=== PATIENT | male | born 1990 | race Caucasian/White ===

== ENCOUNTER 2018-01-16 19:55 | Inpatient (IN) | payer OTHER ==
[2018-01-16] VITALS (7 sets, daily range): BP systolic 146–172; BP diastolic 91–121
[~2018-01-16] VITALS: Ht 182.9 cm; Wt 94.8 kg
[~2018-01-16 19:55] MED LIST: LISINOPRIL20 MG PO
[2018-01-16] MEDS ORDERED: CELEXA40 MG PO (20:09)
[2018-01-16] MEDS ORDERED: EFFEXOR XR75 MG PO (20:10)
[2018-01-16 20:33] LABS: ABSOLUTE MONOCYTES 0.6 thou/uL (0.0-1.2); ABSOLUTE NEUTROPHILS 3.5 thou/uL (1.6-8.1); MONOCYTES 12.2 %; NUCLEATED RBCS 0 /100WBC; WBC 5.2 thou/uL (4.0-11.0)
[2018-01-16 20:36] LABS: ABSOLUTE EOSINOPHILS 0.2 thou/uL (0.0-0.7); ABSOLUTE LYMPHOCYTES 0.8 thou/uL (0.8-5.3); BASOPHILS 0.5 %; EOSINOPHILS 2.9 %; HEMATOCRIT 48.1 % (42.0-52.0); HEMOGLOBIN 17.1 gm/dL (14.0-18.0); LYMPHOCYTES 16.3 %; MCH 33.8 pg (26.0-34.0); MCHC 35.5 g/dL (28.0-37.0); MCV 95.2 fL (80.0-100.0); MPV 9.6 fl. (7.2-11.1); PLATELET COUNT* 145 thou/uL (150-400); POLYS 68.1 %; RBC 5.05 mil/uL (4.50-6.00); RDW-CV 15.5 % (10.5-14.5)
[2018-01-16 20:42] LABS: CREATININE 0.9 mg/dL (0.6-1.3); POTASSIUM 3.8 mmol/L (3.5-5.1)
[2018-01-16 21:00] LABS: ALBUMIN 4.4 g/dL (3.4-5.0); MAGNESIUM 1.9 mg/dL (1.8-2.4); TOTAL BILIRUBIN 1.1 mg/dL (<0.1-1.0); TOTAL PROTEIN 8.3 g/dL (6.4-8.2)
[2018-01-16 21:07] LABS: LARGE PLATELETS RARE; PLATELET ESTIMATE ADEQUATE
[2018-01-16 22:46] LABS: URINE BILIRUBIN NEGATIVE (Negative); URINE BLOOD TRACE (Negative); URINE CLARITY CLEAR; URINE COLOR YELLOW; URINE GLUCOSE-RANDOM NEGATIVE (Negative); URINE KETONES 2+ (Negative); URINE LEUKOCYTES-REFLEX NEGATIVE (Negative); URINE NITRITE-REFLEX NEGATIVE (Negative); URINE PROTEIN NEGATIVE (Negative); URINE UROBILINOGEN 0.2 E.U./dl (0.2-1.0)
[2018-01-17] VITALS (16 sets, daily range): BP systolic 128–193; BP diastolic 84–110
[2018-01-17 00:27] LABS: AMP/METHAMP Negative (Negative); BARBITURATES Negative (Negative); BENZODIAZEPINES Negative (Negative); COCAINE Negative (Negative); METHADONE Negative (Negative); OPIATES Negative (Negative); PCP Negative (Negative); THC Negative (Negative)
--- NOTE | 2018-01-17 01:14 | NUR ---
ADMITTED TO ICU BED 5, SEE ASSESSMENT. PT REPORTED HE ATTENDED INPT REHAB AT [facility] IN [place]ULY AND MAINTAINED 3 MONTHS SOBRIETY AFTER DC, RELAPSING IN OCTOBER AND DRINKING A FIFTH OF VODKA DAILY SINCE. PT TOOK HIS LAST DRINK Wednesday01/14/18 IN ATTEMPT TO QUIT AT HOME. STATES HE WAS TALKING TO HER THIS EVENING WHEN HE FELL AND BEGAN SEIZING. PT HAS PREVIOUS HISTORY OF SEIZURES WITH DETOX. BP SIGNIFICANTLY ELEVATED, PRN ATIVAN GIVEN ORDERED WITH DECREASE IN BP NOTED. PT ORIENTED TO ROOM/CALL LIGHT. EDUCATED ON FALL PRECAUTIONS AND IMPORTANCE OF CALLING FOR ASSISTANCE TO GET OUT OF BED, VERBALIZED UNDERSTANDING. CALL LIGHT WITHIN REACH.
[2018-01-17 04:35] LABS: HEMATOCRIT 43.4 % (42.0-52.0); MCH 33.2 pg (26.0-34.0); MCHC 34.4 g/dL (28.0-37.0); MCV 96.5 fL (80.0-100.0); MPV 10.1 fl. (7.2-11.1); RBC 4.5 mil/uL (4.50-6.00); RDW-CV 15.4 % (10.5-14.5); WBC 5.7 thou/uL (4.0-11.0)
[2018-01-17 05:00] LABS: ALBUMIN 3.4 g/dL (3.4-5.0); CALCIUM 8.5 mg/dL (8.5-10.1); CREATININE 0.6 mg/dL (0.6-1.3); POTASSIUM 3.8 mmol/L (3.5-5.1); TOTAL BILIRUBIN 0.8 mg/dL (<0.1-1.0); TOTAL PROTEIN 6.4 g/dL (6.4-8.2)
[2018-01-17 05:21] LABS: HEMOGLOBIN 14.9 gm/dL (14.0-18.0)
[2018-01-17] MEDS ORDERED: NORVASC2.5 MG PO ×2 (09:58)
[2018-01-17] MEDS ORDERED: AVAPRO 150 MG150 M1 PO (09:59)
--- NOTE | 2018-01-17 11:02 | EKG ---
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
--- NOTE | 2018-01-17 15:00 | NUR ---
PT ADMITTED WITH POSSIBLE ALCOHOL WITHDRAWL SEIZURE. PT BEING SEEN BY NEUROLOGIST AT THIS TIME. PER CHART REVIEW, PT WAS A [facility] FOR 30 DAY REHAB IN JUNE, RELAPSED IN OCTOBER. WILL ASSESS AT LATER TIME
--- NOTE | 2018-01-17 18:57 | NUR ---
RECEIVED PT FROM ICU 1800. HE IS ALERT AND ORIENTED X4. UP STANDBY IN HIS ROOM. IV FLUIDS INFUSING. ORIENTED PATIENT TO HIS ROOM AND REMINDED TO STAY ON THE 2ND FLOOR. PATIENT VERBALIZED UNDERSTANDING. HIS SPOUSE IS AT BEDSIDE. PATIENT UPDATED ON PLAN OF CARE. CALL LIGHT WITHIN REACH. WILL CONTINUE TO MONITOR.
[2018-01-18] VITALS: BP 157/104
[2018-01-18 04:00] VITALS: BP 138/86
[2018-01-18 05:31] LABS: ABSOLUTE EOSINOPHILS 0.2 thou/uL (0.0-0.7); ABSOLUTE LYMPHOCYTES 1.5 thou/uL (0.8-5.3); ABSOLUTE MONOCYTES 0.6 thou/uL (0.0-1.2); BASOPHILS 0.7 %; EOSINOPHILS 3.9 %; HEMATOCRIT 40.6 % (42.0-52.0); HEMOGLOBIN 13.9 gm/dL (14.0-18.0); LYMPHOCYTES 28.5 %; MCH 33.4 pg (26.0-34.0); MCHC 34.3 g/dL (28.0-37.0); MCV 97.4 fL (80.0-100.0); MONOCYTES 10.4 %; MPV 10.4 fl. (7.2-11.1); NUCLEATED RBCS 0 /100WBC; POLYS 56.5 %; RBC 4.16 mil/uL (4.50-6.00); RDW-CV 15.7 % (10.5-14.5); WBC 5.4 thou/uL (4.0-11.0)
--- NOTE | 2018-01-18 05:49 | NUR ---
RECEIVED REPORT AND ASSUMED CARE. BP ELEVATED, OTHERWISE VSS. CARDIAC MONITORING IN PLACE. PHYSICIN NOTIFIED ABOUT ELEVATED BP, ORDERS MADE. PT DENIES ANY COMPLAINTS OF PAIN, AND ONLY MILD NAUSEA. PRN MEDICATION DECLINED AT THIS TIME. ASSESSMENT COMPLETED CHARTED. PT UP WITH SBA, ON RA. DISCUSSED PLAN OF CARE WITH PT, VERBALIZED UNDERSTANDING. BED LOCKED IN LOWEST POSITION, CALL LIGHT WITHIN REACH. MEDICATION ADMIN PER EMAR. HOURLY ROUNDING COMPLETED AND ALL NEEDS MET. WILL CONTINUE TO MONITOR
[2018-01-18 06:05] LABS: CALCIUM 8.3 mg/dL (8.5-10.1); CREATININE 0.6 mg/dL (0.6-1.3); POTASSIUM 3.9 mmol/L (3.5-5.1)
[2018-01-18 06:27] LABS: GIANT PLATELETS FEW; PLATELET ESTIMATE ADEQUATE
[2018-01-18 06:49] LABS: PLATELET COUNT* 101 thou/uL (150-400)
[2018-01-18 08:00] VITALS: BP 151/116
--- NOTE | 2018-01-18 10:18 | NUR ---
ASSUMED CARE OF PATIENT THIS AM AT 0730. PATIENT IS ALERT AND ORIENTED X 4. HE DENIES PAIN AND DISCOMFORT. PATIENT'S TREMORS ARE MINIMAL. TELE SHOWS NSR. PATIENT IS TAKING HIS DIET WELL. PATIENT LATER WENT TO SLEEP. HE WAS NOTICABLY CONFUSED WHEN HE WAS AWAKENED. PATIENT TAKEN TO MRI PER W/C.
[2018-01-18 11:41] VITALS: BP 165/118
--- NOTE | 2018-01-28 09:32 | CON ---
[address] [address] CONSULTATION Name: RACHEAL AGUIRRE Room: [address] IN M.R.#: [id number] Admission: 01/16/18 Attend Phys: Clif Orona MD Discharge: 01/18/18 Date of : 89 Report #: [id number] THIS REPORT FOR: //name// CC: Ivan Orona DATE OF SERVICE: 01/17/2018 HISTORY OF PRESENT ILLNESS: This is a 27-year-old male patient who was evaluated by me for seizure. The patient drinks alcohol heavily. He stopped drinking last . He may have drank some and then he had what looks like a grand mal seizure. The saw that he does not remember much about it. He was postictal but is becoming better. He was seen in the Emergency Room and then, he was admitted from there. He apparently did hit his head. REVIEW OF SYSTEMS: Indicate that he does have significant trouble with alcohol. He did hit his head when he fell down. He does have some thrombocytopenia. REVIEW OF SYSTEMS: Fourteen-point review of systems was carried out and this is what is a relevant 14-point review of system is. I asked him if he had any seizures in the past, he states he does. I asked him whether it was alcohol related, he states he does not remember. PAST MEDICAL HISTORY: Positive for alcohol abuse. FAMILY HISTORY: Noncontributory. SOCIAL HISTORY: He drinks heavily and he smokes. PHYSICAL EXAMINATION: NEUROLOGICAL: Limited. He is sleepy but he wakes up and when he wakes up, he follows simple commands. He is oriented. Cranial nerve examination 2 through 12 looks unremarkable. He moves all four extremities. His position sense is intact. There is no meningeal sign. There is no carotid bruit. CARDIAC: Examinations appear noncontributory. LUGS: No respiratory difficulty was noticed. VITAL SIGNS: Blood pressure is 157/103, pulse is 75 and temperature is 98.8. EXTREMITIES: His pulses are palpable. LABORATORY DATA: His white count is 5.7. He did have a CT scan of the head, which appear unremarkable. IMPRESSION: 1. Seizures, probably alcohol-related seizure. 2. Head trauma from which he appeared to be stable. He was out when this head trauma occurred and I am not sure he fully comprehend now. [place] [address] CONSULTATION Name: PARUL AGUIRRENCER Room: [address] IN [facility]#: [id number] Admission: 01/16/18 Attend Phys: Clif Orona MD Discharge: 01/18/18 Date of : 89 Report #: [id number] of the C-spine to exclude any pathology there. 3. We will get an electroencephalogram done. RECOMMENDATIONS: I had a long talk with the patient and I discussed with him pros and cons of going on anticonvulsant. He wants to stay without seizure medications. That is reasonable. He must stop drinking alcohol altogether. He needs to take seizure precautions. I discussed those with him. He cannot drive for 6 months. Thank you very much for this referral. <ELECTRONICALLY SIGNED> By: Stan Gentile MD 01/28/18 0932 1705 [id number] Gentile MD /nt
--- NOTE | 2018-01-28 09:32 | EEG ---
[address] [address] EEG STUDY REPORT Name: RACHEAL AGUIRRE Room: [address] IN M.R.#: [id number] Admission: 01/16/18 Attend Phys: Clif Orona MD Discharge: 01/18/18 Date of : 89 Report #: [id number] THIS REPORT FOR: //name// CC: Ivan Orona DATE OF SERVICE: 01/18/2018 This patient is being evaluated for the possibility of seizure. EEG was done by placing the electrodes by standard 10-20 system of electrode placement. Both referential and sequential montages were used for recording. The patient's background activity is about 11 Hz and 30 microvolt. The patient went to sleep that is associated with bilaterally symmetrical sleep spindle and vertex sharp waves. Photic stimulation is unremarkable. Throughout the record, no active epileptiform activity was noticed. IMPRESSION: This patient's EEG is within normal limit. Thank you very much for this referral. <ELECTRONICALLY SIGNED> By: Stan Gentile MD 01/28/18 0932 1815 [id number] Gentile MD /nt
== END 2018-01-18 15:12 | disposition left against medical advice (07) | DRG 101 ==
LOC: M.ERS 19:55 → M.ICU 21:39 → M.TBA-ER 21:39 → M.ICU 22:38 → M.2W 01-17 18:01
PROVIDERS: Emergency Medicine; Internal Medicine; ADMIT Internal Medicine
DX: G40.89 Other seizures (principal); F10.230 Alcohol dependence with withdrawal, uncomplicated; D69.6 Thrombocytopenia, unspecified; I10 Essential (primary) hypertension; F17.210 Nicotine dependence, cigarettes, uncomplicated; E86.0 Dehydration; S09.90XA Unspecified injury of head, initial encounter; W18.39XA Other fall on same level, initial encounter; Z53.21 Procedure and treatment not carried out due to patient leaving prior to being seen by health care provider; Y93.89 Activity, other specified; Y92.89 Other specified places as the place of occurrence of the external cause; Z79.899 Other long term (current) drug therapy; Y99.8 Other external cause status